=== PATIENT | male | born 1980 | race Caucasian/White ===

== ENCOUNTER 2017-01-13 07:21 | Emergency (ER) | payer MEDICAID ==
[2017-01-13 07:26] VITALS: RESP 18
--- NOTE | 2017-01-13 07:32 | EDPHY ---
H & P Stated Complaint: Popped pimple in nose,now swollen/painful;PCP started pt on antibx HPI/ROS: CHIEF COMPLAINT: Sore in nose HISTORY OF PRESENT ILLNESS: This patient is a 36 year old male arriving with his complaining of pain in his nose and upper lip secondary to a sore that developed five days ago, 01/08. He states the lesion began as a pimple which he attempted to pop, but the area continued to become more enlarged and irritated. Two days ago, 01/11/17, he visited his primary care provider at [facility] and was prescribed oral Bactrim and Acyclovir to treat the infected area. He reports the area is quite painful, and he endorses decreased appetite, nausea, and several episodes of vomiting. He denies fever, abdominal pain, difficulty breathing, trouble swallowing, problems opening his mouth, or other associated symptoms. He states he is otherwise healthy. REVIEW OF SYSTEMS: A ten point review of systems was performed and is negative with the exception of the items mentioned in the HPI. - Personal History Current Tetanus Diphtheria and Acellular Pertussis (TDAP): Yes Tetanus Vaccine Date: < 10 years - Medical/Surgical History PMH: Kidney stones, PTSD, ADHD, mood disorder. Past medical records reviewed including ED visits from 01/23/16 and 01/28/16. Hx Asthma: No Hx Chronic Respiratory Disease: No Hx Diabetes: No Hx Cardiac Disease: No Hx Renal Disease: No Hx Cirrhosis: No Hx Alcoholism: Yes Hx HIV/AIDS: No Hx Splenectomy or Spleen Trauma: No Other PMH: kidney stone - Social History Smoking Status: Current every day smoker Additional Social History: Smokes 1/2 pack per day, occasional alcohol, denies illicit drug use. . at bedside. - Physical Exam Exam: General Appearance: Alert. Vital signs reviewed. Blood pressure 130/68. Eyes: Pupils equal and round, no conjunctival injection, no discharge. Anicteric. ENT, Mouth: Swelling at entrance to left nostril. Firm 1cm x 1cm swelling inside upper left lip (vestibule). No fluctuance, no drainage. The upper lip is swollen. Dentition in good repair. Gingiva without swelling, erythema, fluctuance. Mucous membranes are moist, no oropharyngeal erythema or edema. No trismus. Neck: Left anterior cervical lymphadenopathy, supple. Respiratory: Lungs are clear to auscultation; no wheezes, rales, or rhonchi. Cardiovascular: Regular rate and rhythm; no murmur, rub, or gallop. Gastrointestinal: Abdomen is soft and nontender Skin: Warm and dry, no rashes on exposed skin, normal color. Back: Nontender to palpation over the thoracolumbar spine. No CVAT. Neurological: Alert and oriented. Moving all four extremities easily and equally. Facial sensation intact to light touch. Psychiatric: Normal affect. Constitutional: Initial Vital Signs Temperature (C) 36.4 C 01/13/17 07:22 Heart Rate 81 01/13/17 07:22 Respiratory Rate 18 01/13/17 07:22 Blood Pressure 130/68 H 01/13/17 07:22 O2 Sat (%) 94 01/13/17 07:22 O2 Delivery Mode Room Air Allergies/Adverse Reactions: No Known Allergies Allergy (Verified 01/13/17 07:21) Home Medications: Medication Instructions Recorded Acyclovir [Zovirax 200 mg (*)] 200 mg PO 01/13/17 Clindamycin HCl [Clindamycin] 300 mg PO TID #30 cap 01/13/17 Hydrocodone/APAP 5/325 [[place] 1 - 2 tab PO Q4 PRN #14 tab 01/13/17 5/325 (RX)] Sulfamethox/Tmp 800/160 mg 1 tab PO 01/13/17 [Bactrim Ds] Medical Decision Making ED Course/Re-evaluation: This patient is a 36 year old male presenting with a five day history of nasal lesion and subsequent upper lip swelling. Physical exam reveals swelling at entrance to his left nostril and a firm 1cm x 1cm swelling inside his left upper lip. The patient is already taking Bactrim and Acyclovir. Administered 4mg PO Zofran and PO [place] 5/325 to control nausea and pain. Plan to consult with ENT regarding this patient's presentation. Plan to contact [facility] to obtain results of lab tests completed two days ago at the patient's visit. 8:[address] Valdovinos, precision filer hand. Based on patient's described signs and symptoms, Dr. Valdovinos recommends continued oral antibiotics. 9:40 Spoke with the doctor section plotter operator for [facility]. He will track down the patient's lab results and call back. Spoke again with physician on-call for [facility]. Tests at [facility] revealed preliminary results of culture obtained on 01/11 are Staph aureus. No sensitivities or other information is available. The HSV culture has not yet been resulted. The patient's infection has not responded to Bactrim so far, plan to add Clindamycin to his regimen for continued treatment. Plan to discharge home in good condition with prescriptions for Clindamycin and [place] for pain management. Narcotic guidelines discussed. He will follow up with [facility] on Monday and with Dr. Valdovinos as needed for continued management of symptoms unresolved. The patient is comfortable with this plan. He has been able to take p.o.. Differential Diagnosis: I considered a differential diagnosis that includes but is not limited to cellulitis, abscess, Clifford's angina, and dental infection. - Data Points Medications Given: Discontinued Medications Hydrocodone Bitart/Acetaminophen ([place] 5/325) 1 tab PO EDNOW ONE Stop: 01/13/17 07:43 Last Admin: 01/13/17 07:48 Dose: 1 tab Hydrocodone Bitart/Acetaminophen ([place] 5/325) 1 tab PO EDNOW ONE Stop: 01/13/17 08:18 Last Admin: 01/13/17 08:41 Dose: 1 tab Vancomycin/Sodium Chloride (Vancomycin 1 Gm (Premix)) 250 mls @ 250 mls/hr IV EDNOW ONE PRN Reason: Protocol Stop: 01/13/17 09:42 Last Admin: 01/13/17 08:56 Dose: 250 mls Clindamycin Phosphate/Dextrose (Cleocin 600 Mg (Premix)) 50 mls @ 100 mls/hr IV EDNOW ONE PRN Reason: Protocol Stop: 01/13/17 09:26 Last Admin: 01/13/17 10:24 Dose: 50 mls Ondansetron HCl (Zofran Odt) 4 mg PO EDNOW ONE Stop: 01/13/17 07:49 Last Admin: 01/13/17 07:56 Dose: 4 mg Departure - Departure Disposition: Home, Routine, Self-Care Clinical Impression: Nasal lesion Cellulitis Qualifiers: Site of cellulitis: face Qualified Code(s): L03.211 - Cellulitis of face Condition: Good Instructions: Cellulitis (ED), Narcotic Pain Management (ED) Additional Instructions: 1. Continue taking your Bactrim, and take your Clindamycin as prescribed. It is important that you finish your entire course of antibiotics. Do not expect much improvement in the next 36-48 hours. 2. Follow up on Monday with [facility] for continued assessment of your lip and nose. Call today to schedule this appointment. 3. You may take ibuprofen or Tylenol as directed below for pain. We have also prescribed [place]. You may take 1-2 tabs every 4 hours as needed for pain. Please see the attached guidelines for narcotic medication use. You may continue to use ice for symptom relief as tolerated. 4. We have referred you to the Ear, Nose, and Throat physician section plotter operator. Follow up with Dr. Valdovinos for symptoms unresolved in the next 3-4 days. 5. Return for fever, increased nausea or vomiting, trouble swallowing, difficulty breathing, increased swelling, or other worsening of condition. Adult Pain & Fever Control: We recommend Acetaminophen (Tylenol) and Ibuprofen (Motrin,Advil) for pain and fever control. When fever is high or pain severe, both drugs can be used at the same time, but at different intervals. Please note the time differences. Your dose is: Acetaminophen 650mg every 4 to 6 hours Ibuprofen 400mg every 6-8 hours with food. Note: do not take Acetaminophen with Hydrocodone (Vicodin, Lortab) or Oxycodone (Percocet). These medications also contain Acetaminophen. No more than 3000mg of Acetaminophen should be taken in 24 hours (for an adult). Referrals: Kadie Rollins MD [Primary Care Provider] - As per Instructions Stacey Valdovinos MD [Medical Doctor] - As per Instructions Stand Alone Forms: Narcotic Guidelines Prescriptions: Clindamycin HCl [Clindamycin] 300 mg PO TID #30 cap Hydrocodone/APAP 5/325 [[place] 5/325 (RX)] 1 - 2 tab PO Q4 PRN #14 tab PRN Reason: pain Report Scribed for: Eileen Mcclendon Report Scribed by: Kay Luis Date of Report: 01/13/17 Time of Report: 07:44 Physician Review and Approval Statement: 01/13/17 07:32 Portions of this note were transcribed by the medical library assistant. I, Dr. Eileen Mcclendon, personally performed the history, physical exam, and medical decision- making; and confirmed the accuracy of the information in the transcribed note.
[2017-01-13] MEDS ORDERED: HYDROCODONE/APAP 5/325 TAB PO ONE ×2 (07:42→08:17)
[2017-01-13] MEDS ORDERED: ONDANSETRON DISINTEGRATING 4 MG TAB PO ONE (07:48)
[2017-01-13] MEDS ORDERED: VANCOMYCIN HCL/NORMAL SALINE 250 ML IV ONE (08:43)
[2017-01-13] MEDS ORDERED: CLINDAMYCIN 600 MG/DEXTROSE 50 ML IV ONE (08:57)
[2017-01-13 11:17] VITALS: BP 117/59; PULSE 69; TEMP 98.2; O2SAT 96
== END 2017-01-13 11:17 | disposition home or self-care (01) ==
DX: L03.211 Cellulitis of face (principal); J34.89 Other specified disorders of nose and nasal sinuses; F17.200 Nicotine dependence, unspecified, uncomplicated
CPT/HCPCS: 96365; J3370